=== PATIENT | female | born 1970 | race Caucasian/White ===

== ENCOUNTER 2020-10-09 23:53 | Day surgery (SDC) | payer OTHER ==
[~2020-10-09] VITALS: Ht 162.6 cm; Wt 75.5 kg
[2020-10-10] MEDS ORDERED: SODIUM CHLORIDE FLUSH 10ML SYR IVF ONE
[2020-10-10] MEDS ORDERED: KETOROLAC 30 MG/1 ML IV ONE
[2020-10-10] MEDS ORDERED: FENTANYL PF 100 MCG/2ML IVPush PRN
[2020-10-10] MEDS ORDERED: SODIUM CHLORIDE 0.9% 1,000 ML IV ONE
[2020-10-10] MEDS ORDERED: KETOROLAC 30 MG/1 ML ONE ×2 (00:04→17:38)
--- NOTE | 2020-10-10 00:15 | NUR ---
PT BIB [facility] FOR OPEN FRACTURE TO RIGHT WRIST AFTER A FALL WHILE HIKING. WRST IS SWOLLEN AND DEFORMED. PT GIVEN 2 MG MORPHINE AND 1 GRAM ROCEPHIN. PT MEDICATED FOR PAIN. JOI. CONSULTING ORTHO. PT PLACED ON PULSE OX. XRAY AT BEDSIDE.
[2020-10-10] MEDS ORDERED: LEVO100T PO (00:19)
[2020-10-10] MEDS ORDERED: SERT25TA PO (00:19)
[2020-10-10] MEDS ORDERED: CEFAZOLIN PMX 1GM/50ML 50 ML IV ONE (00:30)
[2020-10-10] MEDS ORDERED: VANCOMYCIN 1,600 MG in SODIUM CHLORIDE 0.9% 250 ML IV ONE (00:30)
[2020-10-10] MEDS ORDERED: BUPIVACAINE/PF 0.5% INFIL ONE (00:30)
[2020-10-10] MEDS ORDERED: PROPOFOL 10 MG/ML, 20ML IVPush ONE (00:30)
[2020-10-10] MEDS ORDERED: WEIGHT NEEDED FOR VANCO DOSING MC SCH (00:30)
[2020-10-10] MEDS ORDERED: PROPOFOL 10 MG/ML, 20ML ONE ×2 (00:51→01:03)
[2020-10-10] MEDS ORDERED: BUPIVACAINE 0.25% ONE (00:51)
--- NOTE | 2020-10-10 01:15 | NUR ---
Note geraldineone in EDM - 10/10/20 at 0203 by RBROSALEEIN PT BIB [facility] FOR OPEN FRACTURE TO RIGHT WRIST AFTER A FALL WHILE HIKING. WRST IS SWOLLEN AND DEFORMED. PT GIVEN 2 MG MORPHINE AND 1 GRAM ROCEPHIN. PT MEDICATED FOR PAIN. VSS. HICKMAN CONSULTING ORTHO. PT PLACED ON PULSE OX. XRAY AT BEDSIDE.
--- NOTE | 2020-10-10 02:03 | NUR ---
LATE ENTRY: MD TO PERFORM CLOSED REDUCTION. CONSENT SIGNED AND WHO FORM FILLED OUT. PT PLACED ON IN FLIGHT TECHNICIAN AND END TIDAL CO2 MONITOR. ASSISTED MD IN REDUCTION AND PROCEDURE. TECH AT BEDSIDE TO SPLINT AND XRAY DONE. PT TOLERATED WELL. SEE CHART FOR VS AND CONSENT. PT NOW AWAKE. FLUIDS RUNNING. PT NOW RECOVERED AND ON RA. VSS. CALL LIGHT IN REACH
--- NOTE | 2020-10-10 02:10 | NUR ---
PT GIVEN 350 MG PROPOFOL. WASTED 50 MG PROPOFOL WITH BEVERLY TORRES
[2020-10-10] MEDS ORDERED: CEFAZOLIN PMX 1GM/50ML 50 ML ONE (02:13)
[2020-10-10 02:26] LABS: MEAN CORPUSCULAR HEMOGLOBIN 32.1 pg (27.0-34.8); MEAN CORPUSCULAR HGB CONC 34.7 g/dL (32.4-35.8); MEAN PLATELET VOLUME 9.2 fL (7.4-10.4); PLATELET COUNT 216 x10^3/uL (130-400); RED BLOOD COUNT 4.23 x10^6/uL (3.82-5.3); RED CELL DISTRIBUTION WIDTH 13.7 % (9.6-15.2)
[2020-10-10] MEDS ORDERED: morphine SULFATE 10 MG/ML, 1ML IVPush PRN (02:30)
[2020-10-10] MEDS ORDERED: LABETALOL 5MG/ML, 20ML IVPush PRN (02:30)
[2020-10-10] MEDS ORDERED: ACETAMINOPHEN 325 MG TABLET PO PRN ×2 (02:30→18:00)
[2020-10-10] MEDS ORDERED: DOCUSATE 100 MG CAPSULE PO PRN (02:30)
[2020-10-10] MEDS: HEPARIN 5,000 UNITS/ML, 1ML SQ SCH ×3 (02:30→17:19)
[2020-10-10] MEDS ORDERED: IBUPROFEN 600 MG TABLET PO PRN (02:30)
[2020-10-10] MEDS ORDERED: VANCOMYCIN PER PHARMACY MC PRN ×2 (02:30)
[2020-10-10] MEDS ORDERED: SODIUM CHLORIDE 0.9% 1,000 ML IV SCH (02:30)
[2020-10-10 02:36] LABS: ALANINE AMINOTRANSFERASE 25 U/L (12-78); ALBUMIN 3.7 g/dL (3.4-5.0); ANION GAP 5 mmol/L (5-15); CALCIUM 7.7 mg/dL (8.5-10.1); CHLORIDE 112 mmol/L (98-107); CREATININE 0.87 mg/dL (0.55-1.02)
[2020-10-10 02:38] LABS: ALKALINE PHOSPHATASE 62 U/L (45-117); BILIRUBIN,TOTAL 0.4 mg/dL (0.2-1.0); TOTAL PROTEIN 7.4 g/dL (6.4-8.2)
[2020-10-10 02:53] LABS: MD YES
[2020-10-10 02:54] LABS: <PLATELET ESTIMATE> ADEQUATE; <PLT MORPHOLOGY> NORMAL PLT MORPH; <RBC MORPHOLOGY> NORMAL; BAND#(MANUAL) 1.21 x10^3/uL; BANDS%(MANUAL) 8 % (0-7); LYMPHS% (MANUAL) 2 % (22-44); METAMYELOCYTES# (MANUAL) 0.15 x10^3/uL (0-0); METAMYELOCYTES% (MANUAL) 1 % (0-1); MONOS% (MANUAL) 4 % (2-9); SEG#(MANUAL) 12.84 x10^3/uL (1.8-6.8); SEGS% (MANUAL) 85 % (42-75)
[2020-10-10 03:01] VITALS: BP 142/83
[2020-10-10] MEDS ORDERED: PHARMACOKINETIC CONSULTATION MC ONE (03:30)
[2020-10-10] MEDS ORDERED: PHARMACOKINETIC MONITORING MC PRN (03:30)
[2020-10-10 08:10] VITALS: BP 143/83
[2020-10-10] MEDS ORDERED: LEVOTHYROXINE 100 MCG TABLET ONE (08:53)
[2020-10-10] MEDS ORDERED: SERTRALINE 50MG TABLET ONE (08:53)
[2020-10-10] MEDS: SERTRALINE 50MG TABLET PO SCH (09:08)
[2020-10-10] MEDS: LEVOTHYROXINE 100 MCG TABLET PO SCH (09:08)
[2020-10-10] MEDS: CEFAZOLIN PMX 1GM/50ML 50 ML IV SCH ×2 (09:09→16:42)
[2020-10-10 14:35] VITALS: BP 149/89
[2020-10-10] MEDS ORDERED: EPINEPHRINE 1 MG/ML, 1ML ONE (16:55)
[2020-10-10] MEDS ORDERED: BUPIVACAINE/PF 0.5% ONE (16:55)
[2020-10-10] MEDS ORDERED: MIDAZOLAM 1 MG/ML, 2ML ONE (17:35)
[2020-10-10] MEDS ORDERED: FENTANYL PF 100 MCG/2ML ONE ×2 (17:35→18:33)
[2020-10-10] MEDS ORDERED: ONDANSETRON 2MG/ML, 2ML ONE (17:38)
[2020-10-10] MEDS ORDERED: CEFAZOLIN 1,000 MG ONE (17:38)
[2020-10-10] MEDS ORDERED: DEXAMETHASONE 4 MG/ML, 1ML ONE (17:38)
[2020-10-10] MEDS ORDERED: BUPIVACAINE/PF-EPI 0.5% 1:200K INFIL ONE (17:53)
[2020-10-10] MEDS ORDERED: PROMETHAZINE 25 MG/ML, 1ML IVPush PRN (18:00)
[2020-10-10] MEDS ORDERED: DIAZEPAM 5 MG/ML, 2ML IVPush PRN (18:00)
[2020-10-10] MEDS ORDERED: ONDANSETRON 2MG/ML, 2ML IVPush PRN (18:00)
[2020-10-10] MEDS ORDERED: HYDROmorphone 1 MG/ML, 1ML INJ IVPush PRN (18:00)
[2020-10-10] MEDS ORDERED: OXYcodone 5 MG/5 ML ORAL.SOL UDC PO PRN (18:00)
[2020-10-10] MEDS ORDERED: DIPHENHYDRAMINE 50 MG/ML, 1ML IVPush PRN (18:00)
[2020-10-10] MEDS ORDERED: FENTANYL PF 100 MCG/2ML IV PRN (18:00)
[2020-10-10] MEDS ORDERED: ALBUTEROL HFA 90 MCG/SPRAY ONE (19:01)
[2020-10-10 19:03] VITALS: BP 115/75
[2020-10-10] MEDS ORDERED: MEPERIDINE/PF 25MG/ML,1ML ONE (19:18)
[2020-10-10] MEDS ORDERED: ALBUTEROL HFA 90 MCG/SPRAY INH PRN (19:30)
[2020-10-10] MEDS ORDERED: MEPERIDINE/PF 25MG/0.5ML IVPush PRN (19:30)
[2020-10-10] MEDS ORDERED: ACETAMINOPHEN 650 MG/20.3 ML UDC ONE (19:47)
[2020-10-10] MEDS ORDERED: OXYcodone 5 MG/5 ML ORAL.SOL UDC ONE (19:48)
[2020-10-10 20:29] VITALS: BP 154/94
[2020-10-10] MEDS ORDERED: VANCOMYCIN 1,200 MG in SODIUM CHLORIDE 0.9% 250 ML IV SCH (21:00)
[2020-10-10] MEDS ORDERED: OXYcodone IR 5MG TABLET PO PRN (22:30)
[2020-10-11] MEDS: CEFAZOLIN PMX 1GM/50ML 50 ML IV SCH ×2 (01:38→09:30)
[2020-10-11 03:22] VITALS: BP 122/75
[2020-10-11 04:37] LABS: BASOPHILS % (AUTO) 0 % (0-1); EOSINOPHILS % (AUTO) 0 % (1-7); LYMPHOCYTES % (AUTO) 4 % (22-44); MEAN CORPUSCULAR HEMOGLOBIN 32.3 pg (27.0-34.8); MEAN CORPUSCULAR HGB CONC 34.8 g/dL (32.4-35.8); MEAN PLATELET VOLUME 9.2 fL (7.4-10.4); MONOCYTES % (AUTO) 4 % (2-9); NEUTROPHILS % (AUTO) 93 % (42-75); PLATELET COUNT 189 x10^3/uL (130-400); RED BLOOD COUNT 4.18 x10^6/uL (3.82-5.3); RED CELL DISTRIBUTION WIDTH 13.6 % (9.6-15.2)
[2020-10-11 04:45] LABS: MD NO
[2020-10-11 04:46] LABS: ANION GAP 5 mmol/L (5-15); CALCIUM 7.7 mg/dL (8.5-10.1); CHLORIDE 110 mmol/L (98-107); CREATININE 0.85 mg/dL (0.55-1.02)
[2020-10-11] MEDS: LEVOTHYROXINE 100 MCG TABLET PO SCH (06:25)
[2020-10-11] MEDS: HEPARIN 5,000 UNITS/ML, 1ML SQ SCH (06:25)
[2020-10-11 07:50] VITALS: BP 143/83
[2020-10-11] MEDS: SERTRALINE 50MG TABLET PO SCH (07:55)
[2020-10-11 12:08] VITALS: BP 132/73
[2020-10-11] MEDS ORDERED: OXYC5CAP2 PO (14:03)
== END 2020-10-11 14:35 | disposition home or self-care (01) ==
LOC: ED 10-10 00:44 → OUT 10-10 02:09 → UNDOADMIN 10-10 02:09 → EDIP 10-10 02:09 → 4NE 10-10 02:52 → DCLOUNGE 10-11 14:25 → OUT 10-11 14:35 → UNDODISIN 10-11 14:35
PROVIDERS: ATTEND Family Medicine
DX: S52.37 Galeazzi's fracture (principal); F32.9 Major depressive disorder, single episode, unspecified; E89.0 Postprocedural hypothyroidism; Z20.822 Contact with and (suspected) exposure to COVID-19; Z79.890 Hormone replacement therapy; Z79.899 Other long term (current) drug therapy; Z88.2 Allergy status to sulfonamides; Z98.890 Other specified postprocedural states; W00.2XXA Other fall from one level to another due to ice and snow, initial encounter; Y93.01 Activity, walking, marching and hiking; Y92.89 Other specified places as the place of occurrence of the external cause; Y99.8 Other external cause status
CPT/HCPCS: 25526; 36415; 73090; 73100; 80048; 80053; 85025; 87635; 93005; 96361; 96365; 96375; 99285; C1713; J0171; J0690; J1100; J1644; J1885; J2175; J2250; J2405; J3010; J3370; J7030; J7050; 76000; G0378